=== PATIENT | female | born 1945 | race Caucasian/White ===

== ENCOUNTER 2020-10-19 00:37 | Day surgery (SDC) | payer OTHER ==
[~2020-10-19 00:37] MED LIST: DIAZ5 PO; HYDACE5 PO; LISHYD2025 PO; LISI20 PO; NAPR500 PO; PRED20 PO; PROACE100 PO; PROM25 PO; TRAM50 PO
== END 2020-10-19 22:59 | disposition home or self-care (01) ==
LOC: WOUND 00:37
DX: S51.812D Laceration without foreign body of left forearm, subsequent encounter (principal); S51.802D Unspecified open wound of left forearm, subsequent encounter; X58.XXXD Exposure to other specified factors, subsequent encounter; Z87.891 Personal history of nicotine dependence; Z88.5 Allergy status to narcotic agent
CPT/HCPCS: A9270; G0463

== ENCOUNTER → 2021-10-11 | Outpatient (CLI) | payer OTHER ==
[2021-10-13 09:56] LABS: Stool Occult Bld Immuno 1 Negative (NEGATIVE)
== END | disposition home or self-care (01) ==
LOC: LAB SHORT 14:50 → LAB 14:50
PROVIDERS: Nurse Practitioner Family
DX: Z12.11 Encounter for screening for malignant neoplasm of colon (principal); Z12.12 Encounter for screening for malignant neoplasm of rectum
CPT/HCPCS: G0328

== ENCOUNTER → 2022-09-26 | Outpatient (CLI) | payer OTHER | END | disposition home or self-care (01) | LOC: LAB 08:45 → LAB SHORT 08:45 | DX: R73.03 Prediabetes (principal) | CPT/HCPCS: 82043 ==

== ENCOUNTER → 2023-03-13 | Outpatient (CLI) | payer OTHER ==
[2023-03-13 14:10] LABS: Bun/Creatinine Ratio 21.8 (12.0-20.0); Calcium, Blood 10.1 mg/dL (8.5-10.1); Creatinine, Blood 0.69 mg/dL (0.40-1.00); Potassium, Blood 3.5 mmol/L (3.5-5.5)
== END ==
LOC: LAB SHORT 13:30 → LAB 13:30
PROVIDERS: Registered Nurse Oncology
DX: C50.919 Malignant neoplasm of unspecified site of unspecified female breast (principal); Z17.0 Estrogen receptor positive status [ER+]; Z85.3 Personal history of malignant neoplasm of breast; M89.9 Disorder of bone, unspecified
CPT/HCPCS: 80048

== ENCOUNTER → 2023-03-28 | Outpatient (CLI) | payer OTHER | END | disposition home or self-care (01) | LOC: LAB SHORT 08:15 → LAB 08:15 | DX: R73.03 Prediabetes (principal) | CPT/HCPCS: 82043 ==

== ENCOUNTER 2024-09-30 09:13 | Emergency (ER) | payer OTHER ==
[~2024-09-30] VITALS: Ht 152.4 cm; Wt 77.1 kg
[2024-09-30 10:28] LABS: BASOPHILS ABSOLUTE AUTO 0.03 K/mm3 (0.00-0.23); BASOPHILS PERCENT AUTO 0 % (0-2); EOSINOPHILS ABSOLUTE AUTO 0.06 K/mm3 (0.00-0.68); EOSINOPHILS PERCENT AUTO 1 % (0-6); Hematocrit 42.9 % (33.0-51.0); Hemoglobin 14.2 g/dL (11.5-16.0); IMMATURE GRAN PERCENT AUTO 1 % (0-1); LYMPHOCYTES ABSOLUTE AUTO 3.53 K/mm3 (0.84-5.20); LYMPHOCYTES PERCENT AUTO 27 % (21-46); MONOCYTES ABSOLUTE AUTO 0.73 K/mm3 (0.16-1.47); MONOCYTES PERCENT AUTO 6 % (4-13); Mean Corpuscular HGB 32.4 pg (26.0-34.0); Mean Corpuscular HGB Conc 33.1 g/dL (31.5-36.5); Mean Corpuscular Volume 98 fL (80-100); Mean Platelet Volume 10.6 fL (9.1-12.4); NEUTROPHILS ABSOLUTE AUTO 8.53 K/mm3 (1.96-9.15); NEUTROPHILS PERCENT AUTO 66 % (41-73); Platelet Count 289 K/mm3 (150-400); RDW Coefficient Variation 13.8 % (11.7-14.2); RDW Standard Deviation 49.9 fL (35.1-46.3); Red Blood Cell Count 4.38 M/mm3 (3.80-5.20); White Blood Cell Count 12.98 K/mm3 (4.00-11.30)
[2024-09-30] MEDS ORDERED: LISINOPRIL-HCT1 EACH PO (10:54)
[2024-09-30] MEDS ORDERED: LETROZOLE2.5 M3 PO (10:54)
[2024-09-30] MEDS ORDERED: TRAM50 PO (10:54)
[2024-09-30 11:10] LABS: Albumin/Globulin Ratio 0.8 (0.8-1.8); Bilirubin, Total 0.3 mg/dL (0.1-1.0); Bun/Creatinine Ratio 35.2 (12.0-20.0); Calcium, Blood 9.1 mg/dL (8.5-10.1); Creatinine, Blood 0.74 mg/dL (0.40-1.00); Globulin, Blood 3.8 g/dL (2.2-4.0); Potassium, Blood 3.7 mmol/L (3.5-5.5); Total Protein, Blood 6.8 g/dL (6.4-8.2)
[2024-09-30] MEDS ORDERED: Amoxicillin/Clavulanate K 875 MG Tab PO ONE (13:30)
[2024-09-30] MEDS ORDERED: AMOCLA875 PO (13:36)
[2024-09-30 13:46] VITALS: BP 154/84
== END 2024-09-30 13:48 | disposition home or self-care (01) ==
LOC: ER 09:13
PROVIDERS: Student in an Organized Health Care Education/Training Program
DX: J34.0 Abscess, furuncle and carbuncle of nose (principal); Z88.1 Allergy status to other antibiotic agents; Z88.5 Allergy status to narcotic agent; Z87.891 Personal history of nicotine dependence
CPT/HCPCS: 70487; 80053; 85025; 99284-25; A9270; Q9967